=== PATIENT | male | born 1990 | race Caucasian/White ===

== ENCOUNTER 2016-08-24 12:04 | Inpatient (IN) | payer OTHER ==
[~2016-08-24] VITALS: Ht 180.3 cm; Wt 75.1 kg
[~2016-08-24 12:04] MED LIST: LACTATED RINGER'S 1000 ML INJ 1,000 ML IV ONE; ONDANSETRON HCL 4 MG/2 ML VIAL IV PUSH ONE; PROPOFOL 200 MG/20 ML AMP IV ONE
[2016-08-24 12:06] VITALS: BP 140/76; PULSE 91; RESP 12; TEMP 97.7; O2SAT 96
[2016-08-24] MEDS ORDERED: CEPH-460 PO (12:21)
[2016-08-24] MEDS ORDERED: NORC5TAB PO (12:21)
[2016-08-24] MEDS ORDERED: SODIUM CHLOR 0.9% 1000 ML INJ 1,000 ML IV SCH (12:45)
[2016-08-24] MEDS ORDERED: VANCOMYCIN INJ 1,000 MG in SODIUM CHLOR 0.9% 250 ML INJ 250 ML IV ONE (12:45)
--- NOTE | 2016-08-24 13:22 | PD ---
HPI Chief Complaint: Injury Time Seen by Provider: 12:20 Travel History International Travel<30 days: No Contact w/Intl Traveler<30days: No Traveled to known affect area: No History of Present Illness HPI 25-year-old male complains of right fifth finger pain. Patient had a crush injury from 2 pieces of metal 4 days ago. Patient went to the emergency room in [place] and had x-ray done of the right hand which show a compound comminuted fracture right fifth finger. The laceration was repaired with sutures. Patient was discharged home with prescription for Keflex. Patient was advised to follow with orthopedist. Patient was seen by Dr. Jerrell Yanes in the office this morning and referred to ED for evaluation. Patient is up-to-date with TD booster. PFSH Past Medical History Gastrointestinal Disorders: Yes (ulcerative colitis) Tetanus Vaccination: < 5 Years Influenza Vaccination: No Social History Alcohol Use: Yes (occ) Tobacco Use: Yes (dip/weekly) Substance Use: No Allergies-Medications (Allergen,Severity, Reaction): Coded Allergies: No Known Allergies (Unverified , 08/24/16) Reported Meds & Prescriptions Reported Meds & Active Scripts Active Reported Grimes (Hydrocodone-Acetaminophen) 5-325 mg Tab 1 Tab PO Q6H PRN Keflex (Cephalexin) 500 Mg Cap 500 Mg PO Q6H Review of Systems General / Constitutional: No: Fever Eyes: No: Visual changes HENT: No: Headaches Cardiovascular: No: Chest Pain or Discomfort Respiratory: No: Shortness of Breath Gastrointestinal: No: Abdominal Pain Genitourinary: No: Dysuria Musculoskeletal: No: Pain Skin: No Rash Neurologic: No: Weakness Psychiatric: No: Depression Endocrine: No: Polydipsia Hematologic/Lymphatic: No: Easy Bruising Physical Exam Narrative GENERAL: Well-nourished, well-developed patient. SKIN: Warm and dry. HEAD: Normocephalic. EYES: No scleral icterus. No injection or drainage. NECK: Supple, trachea midline. No JVD or lymphadenopathy. CARDIOVASCULAR: Regular rate and rhythm without murmurs, gallops, or rubs. RESPIRATORY: Breath sounds equal bilaterally. No accessory muscle use. GASTROINTESTINAL: Abdomen soft, non-tender, nondistended. MUSCULOSKELETAL: No cyanosis, or edema. BACK: Nontender without obvious deformity. No CVA tenderness. Patient has redness swelling tenderness right fifth finger with blackened discoloration distal phalanx of the right fifth finger. Data Data Last Documented VS Vital Signs Date Time Temp Pulse Resp B/P Pulse Ox O2 Delivery O2 Flow Rate FiO2 08/24/16 12:06 97.7 91 12 140/76 96 Room Air Orders Complete Blood Count With Diff (08/24/16 12:37) Basic Metabolic Panel (Bmp) (08/24/16 12:37) Blood Culture (08/24/16 12:37) Iv Access Insert/Monitor (08/24/16 12:37) Sodium Chlor 0.9% 1000 Ml Inj (Ns 1000 M (08/24/16 12:45) Vancomycin Inj (Vancomycin Inj) (08/24/16 12:45) Finger (Tni3nzc) (08/24/16 13:07) Piperacil-Tazo 3.375 Gm Premix (Zosyn 3. (08/24/16 13:30) Add Patient To Providers List (08/24/16 ) Labs Laboratory Tests Test 08/24/16 13:05 White Blood Count 11.6 TH/MM3 Red Blood Count 5.33 MIL/MM3 Hemoglobin 15.7 GM/DL Hematocrit 47.0 % Mean Corpuscular Volume 88.2 FL Mean Corpuscular Hemoglobin 29.4 PG Mean Corpuscular Hemoglobin 33.3 % Concent Red Cell Distribution Width 13.4 % Platelet Count 222 TH/MM3 Mean Platelet Volume 8.8 FL Neutrophils (%) (Auto) 79.7 % Lymphocytes (%) (Auto) 11.7 % Monocytes (%) (Auto) 6.5 % Eosinophils (%) (Auto) 1.4 % Basophils (%) (Auto) 0.7 % Neutrophils # (Auto) 9.3 TH/MM3 Lymphocytes # (Auto) 1.4 TH/MM3 Monocytes # (Auto) 0.8 TH/MM3 Eosinophils # (Auto) 0.2 TH/MM3 Basophils # (Auto) 0.1 TH/MM3 CBC Comment DIFF FINAL Differential Comment Sodium Level 138 MEQ/L Potassium Level 4.1 MEQ/L Chloride Level 102 MEQ/L Carbon Dioxide Level 33.1 MEQ/L Anion Gap 3 MEQ/L Blood Urea Nitrogen 10 MG/DL Creatinine 0.96 MG/DL Estimat Glomerular Filtration 97 ML/MIN Rate Random Glucose 102 MG/DL Calcium Level 9.1 MG/DL MDM Medical Decision Making Medical Screen Exam Complete: Yes Emergency Medical Condition: Yes Interpretation(s) 1354 PM. CBC WBC 11.6. 79 neutrophil. BMP within normal limit. Differential Diagnosis Differential diagnosis including cellulitis, gangrene, compound fracture right fifth finger. Narrative Course 25-year-old male with history of open fracture right fifth finger. Examination consistent with cellulitis and possible gangrene of right fifth finger. Vancomycin 1 g IV. Zosyn 3.375 g IV. Hand surgeon contacted was see the patient in the ED. Diagnosis Primary Impression: Gangrene of finger Additional Impression: Finger fracture, right Qualified Code: S62.609B - Finger fracture, right, open, initial encounter Admitting Information Admitting Physician Requests: Admit Everett Camacho MD Aug 24, 2016 13:22
[2016-08-24] MEDS ORDERED: PIPERACIL-TAZO 3.375 GM PREMIX 50 ML IV ONE (13:30)
[2016-08-24 13:33] LABS: AUTOMATED NEUTROPHIL # 9.3 TH/MM3 (1.8-7.7); BASOPHIL # 0.1 TH/MM3 (0-0.2); BASOPHIL % 0.7 % (0.0-2.0); EOSINOPHIL # 0.2 TH/MM3 (0-0.4); EOSINOPHIL % 1.4 % (0.0-4.0); HEMO FLAGS DIFF FINAL; LYMPH % 11.7 % (9.0-44.0); LYMPHOCYTE # 1.4 TH/MM3 (1.0-4.8); MEAN CELL VOLUME 88.2 FL (80.0-100.0); MEAN CORPUSCULAR HEMOGLOBIN 29.4 PG (27.0-34.0); MEAN CORPUSCULAR HGB CONC 33.3 % (32.0-36.0); MONO % 6.5 % (0.0-8.0); NEUT % 79.7 % (16.0-70.0); PLATELET COUNT 222 TH/MM3 (150-450); RED BLOOD COUNT 5.33 MIL/MM3 (4.50-5.90); RED CELL DISTRIBUTION WIDTH 13.4 % (11.6-17.2); WHITE BLOOD COUNT 11.6 TH/MM3 (4.0-11.0)
[2016-08-24 13:44] LABS: BICARBONATE 33.1 MEQ/L (21.0-32.0); POTASSIUM 4.1 MEQ/L (3.5-5.1)
--- NOTE | 2016-08-24 14:23 | RADRPT ---
EXAM DATE/TIME: 08/24/2016 13:40 [facility] COMPARISON: No previous studies available for comparison. INDICATIONS : Smashed finger , increased swelling and pain. MEDICAL HISTORY : None. SURGICAL HISTORY : None. ENCOUNTER: Initial ACUITY: 4 - 6 days PAIN SCORE: 10/10 LOCATION: Right 5th finger. FINDINGS: 3 views of the right little finger demonstrates a comminuted and angulated fracture of the fifth digi t at the middle phalange with approximately 45 of palmar angulation. There is moderate adjacent soft tissue edema is seen. No evidence of articular extension.. CONCLUSION: Comminuted mildly angulated fracture of the fifth digit middle phalange. No articular extension. Arely Dunn MD on August 24, 2016 at 13:57 Board Certified Radiologist. This report was verified electronically.
--- NOTE | 2016-08-24 14:29 | HHI.HP ---
[facility] [place] No Primary Care Physician Admission Diagnosis Diagnoses: Chief Complaint: Right hand infection, pain. Travel History International Travel<30 Days: No Contact w/Intl Traveler <30 Da: No Traveled to Known Affected Are: No History of Present Illness Mr. Alamo is a pleasant 25-year-old male with no significant past medical history who presents to the emergency department due to right fifth finger pain, black eschar formation. On 08/20/2016 at around 5 PM patient suffered a crush injury from 2 pieces of metal. He went to [place] emergency room and had imaging studies done that showed a compound comminuted fracture of the right fifth digit. His laceration was repaired with sutures. Patient was subsequently discharged home with Keflex and was advised to follow- up with orthopedic surgeon area patient went to see Dr. Jerrell Yanes on the day of admission, 08/24/2016 and subsequently was advised to come to the emergency department. Patient denies any chest pain, shortness of breath, fever or chills. Denies any changes in bowel or bladder habits. Review of Systems ROS Limitations: Other (negative except as noted in the history of present illness) Past Family Social History Past Medical History No significant medical history Past Surgical History Right knee surgery 12 years ago Reported Medications Does not take any medication on a regular basis. Patient was recently discharged from an outside ED on Keflex. Allergies: Coded Allergies: No Known Allergies (Unverified , 08/24/16) Family History Motherrheumatoid arthritis Social History No history of premature coronary artery disease Physical Exam Vital Signs Vital Signs Date Time Temp Pulse Resp B/P Pulse Ox O2 Delivery O2 Flow Rate FiO2 08/24/16 12:06 97.7 91 12 140/76 96 Room Air Physical Exam GENERAL: This is a well-nourished, well-developed patient, in no apparent distress. SKIN: No rashes, ecchymoses or lesions. Warm and dry. HEAD: Atraumatic. Normocephalic. No temporal or scalp tenderness. EYES: Pupils equal round and reactive. No injection or drainage. ENT: Nose without bleeding, purulent drainage or septal hematoma. Airway patent. NECK: Trachea midline. No lymphadenopathy. Supple, nontender, no meningeal signs. CARDIOVASCULAR: Regular rate and rhythm without murmurs, gallops, or rubs. No JVD. RESPIRATORY: Clear to auscultation. Breath sounds equal bilaterally. No wheezes , rales, or rhonchi. GASTROINTESTINAL: Abdomen soft, non-tender, nondistended. No guarding. MUSCULOSKELETAL: Extremities without clubbing, cyanosis, or edema. Right fifth digit has dressing on. Reviewed picture - top of the finger has gangrenous changes. Able to move all fingers. NEUROLOGICAL: Awake and alert. Cranial nerves II through XII intact. No focal neurological deficits. Normal speech. Laboratory Laboratory Tests Test 08/24/16 13:05 White Blood Count 11.6 Red Blood Count 5.33 Hemoglobin 15.7 Hematocrit 47.0 Mean Corpuscular Volume 88.2 Mean Corpuscular Hemoglobin 29.4 Mean Corpuscular Hemoglobin 33.3 Concent Red Cell Distribution Width 13.4 Platelet Count 222 Mean Platelet Volume 8.8 Neutrophils (%) (Auto) 79.7 Lymphocytes (%) (Auto) 11.7 Monocytes (%) (Auto) 6.5 Eosinophils (%) (Auto) 1.4 Basophils (%) (Auto) 0.7 Neutrophils # (Auto) 9.3 Lymphocytes # (Auto) 1.4 Monocytes # (Auto) 0.8 Eosinophils # (Auto) 0.2 Basophils # (Auto) 0.1 CBC Comment DIFF FINAL Differential Comment Sodium Level 138 Potassium Level 4.1 Chloride Level 102 Carbon Dioxide Level 33.1 Anion Gap 3 Blood Urea Nitrogen 10 Creatinine 0.96 Estimat Glomerular Filtration 97 Rate Random Glucose 102 Calcium Level 9.1 Date/Time Procedure Status Source Growth 08/24/16 13:05 Aerobic Blood Culture Received Blood Peripheral Pending 08/24/16 13:05 Anaerobic Blood Culture Received Blood Peripheral Pending Result Diagram: 08/24/16 1305 08/24/16 1305 Imaging Last Impressions Finger X-Ray 08/24/16 1307 Signed Impressions: Service Date/Time: Wednesday, August 24, 2016 13:40 - CONCLUSION: Comminuted mildly angulated fracture of the fifth digit middle phalange. No articular extension. Arely Dunn MD Assessment and Plan Problem List: (1) Gangrene of finger ICD Code: I96 Status: Acute (2) Finger fracture, right ICD Code: S62.609A Status: Acute Assessment and Plan Mr. Alamo is a pleasant 25-year-old male with no significant past medical history who presents to the emergency department 4 days after he had a crush injury from 2 pieces of metal and sustained right fifth finger fracture. Patient was initially treated at an outside ED and was discharged on Keflex. During a follow-up with orthopedic surgeon today 08/24/2016, patient was advised to come to the emergency department. - Right sided 5th digit fracture - Gangrene of the right 5th digit - Acetaminophen, Percocet, morphine when necessary for pain. - Hand surgery consult pending - Continue Vancomycin and Zosyn for now. Full code. SCDs, Ambulation. Physician Certification 2 Midnight Certification Type: Admission for Inpatient Services Order for Inpatient Services The services are ordered in accordance with Medicare regulations or non- Medicare payer requirements, as applicable. In the case of services not specified as inpatient-only, they are appropriately provided as inpatient services in accordance with the 2-midnight benchmark. Estimated LOS (days): 2 days is the estimated time the patient will need to remain in the hospital, assuming treatment plan goals are met and no additional complications. Post-Hospital Plan: Home Problem Qualifiers (1) Finger fracture, right: Qualified Code: S62.609B - Finger fracture, right, open, initial encounter Reginald Meléndez DO Aug 24, 2016 2:29 pm
[2016-08-24] MEDS ORDERED: BISACODYL 10 MG SUPP PR PRN (14:30)
[2016-08-24] MEDS ORDERED: SODIUM CHLORIDE 0.9% FLUSH 5 ML FLUSH FLUSH PRN (14:30)
[2016-08-24] MEDS ORDERED: Vancomycin Consult Pharmacy 1 EA OTHER SCH (14:30)
[2016-08-24] MEDS ORDERED: ONDANSETRON HCL 4 MG/2 ML VIAL IVP PRN (14:30)
[2016-08-24] MEDS ORDERED: ACETAMINOPHEN 325 MG TAB PO PRN (14:30)
[2016-08-24] MEDS ORDERED: MAGNESIUM HYDROXIDE SUSP 30 ML CUP PO PRN (14:30)
[2016-08-24] MEDS ORDERED: NALOXONE HCL 0.4 MG/ML AMP IV PRN (14:30)
[2016-08-24] MEDS: LACTATED RINGER'S 1000 ML INJ 1,000 ML IV SCH ×2 (14:45→21:46)
[2016-08-24] MEDS ORDERED: BUPIVACAINE HCL PF 0.5% 30 ML VIAL ONE (16:28)
[2016-08-24] MEDS ORDERED: LIDOCAINE HCL 2% 50 ML VIAL ONE (16:28)
[2016-08-24] MEDS ORDERED: BACITRACIN TOP OINT 15 GM TUBE ONE ×2 (16:29→16:32)
[2016-08-24] MEDS ORDERED: BACITRACIN OPHT OINT 3.5 GM TUBO ONE (16:30)
[2016-08-24] MEDS ORDERED: ACETAMINOPHEN 1000 MG/100 ML VIAL IV ONE (16:38)
[2016-08-24] MEDS ORDERED: MIDAZOLAM HCL 2 MG/2 ML VIAL ONE (16:38)
[2016-08-24] MEDS ORDERED: HYDROmorphone HCL PF 2 MG/ML VIAL ONE (16:38)
[2016-08-24] MEDS ORDERED: fentaNYL CITRATE 250 MCG/5 ML AMP ONE (16:56)
[2016-08-24] MEDS ORDERED: LIDOCAINE HCL 2% 50 ML VIAL INFIL ONE (17:05)
[2016-08-24] MEDS ORDERED: BUPIVACAINE HCL PF 0.5% 30 ML VIAL INFIL ONE (17:05)
[2016-08-24] MEDS ORDERED: NEOMYCIN/POLYMYXIN 1 ML G.U. IRRIGANT IR ONE (17:29)
[2016-08-24] MEDS ORDERED: DO NOT ADM ANY ANTICOAGULANT DRUGS XX PRN (17:54)
[2016-08-24] MEDS: SODIUM CHLORIDE 0.9% FLUSH 5 ML FLUSH FLUSH SCH (21:00)
[2016-08-24 21:27] VITALS: BP 139/71; PULSE 78; RESP 16; TEMP 97.3; O2SAT 97
[2016-08-24] MEDS: PIPERACIL-TAZO 3.375 GM PREMIX 50 ML IV SCH (21:45)
[2016-08-25] VITALS (8 sets, daily range): BP systolic 116–140; BP diastolic 59–78; PULSE 72–94; RESP 16; TEMP 97.4–98.1; O2SAT 97–98
[2016-08-25] MEDS: oxyCODONE/ACETAMINOPHEN 5 MG/325 MG TAB PO PRN ×3 (00:08→19:18)
[2016-08-25] MEDS: VANCOMYCIN INJ 1,250 MG in SODIUM CHLOR 0.9% 250 ML INJ 250 ML IV SCH ×2 (00:08→13:43)
--- NOTE | 2016-08-25 00:11 | MB ---
cc: ANTONIO ANTUNEZ III, M.D. 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 He went to the emergency room at [place], had x-rays done which showed an open fracture of the right fifth finger. I think he was placed on Keflex. He said he soaked his hand in Betadine and the laceration was repaired with sutures. He was advised to follow up with an orthopedic surgeon which he did so this morning and was sent to me to the emergency room. PAST MEDICAL HISTORY: Ulcerative colitis Tetanus vaccination, he is up-to-date with his tetanus booster. SOCIAL HISTORY Drinks occasional alcohol and does not smoke. ALLERGIES NO KNOWN DRUG ALLERGIES. MEDICATIONS 1. Roy. 2. Keflex. FAMILY HISTORY: Noncontributory to this injury. REVIEW OF SYSTEMS He is not complaining of any fevers, headaches, blurry or double vision. He is not complaining of any chest pain or palpitations. He does not complain of any coughing, wheezing or shortness breath. He is not complaining of any nausea, vomiting or abdominal pain. He does not complain of any burning, frequency or urgency. He is not complaining of any musculoskeletal pain aside from the right fifth finger, he is not complaining of any rashes, lesions or eruptions on the skin. He is not complaining of numbness or weakness. He is not complaining of any anxiety, depression or suicidal ideation. He is not complaining of any easy bruising. X-RAYS: Reveal comminuted mildly angulated fracture of the fifth middle phalanx without any articular extension. LABORATORY STUDIES: Reveal a white blood cell count 11.6 thousand, H&H 15.7, 47.0, platelet count 222, BUN and creatinine 10 and 0.96. PHYSICAL EXAMINATION: The patient is well-developed, well-nourished, in no apparent distress. Awake, alert, oriented x3, very pleasant, sitting in his bed. His parents in the room. VITAL SIGNS: Temperature 98.0, blood pressure 127/65. Pulse ox 97% on room air. Examination of the right fifth finger reveals obvious normal right fifth finger the distal one-half of which is almost cadaveric in appearance with dry mummified gangrene of the very tip of the finger and through the nail bed. There is a sutured closed wound volarly. He is able to slightly flex and extend the finger at the PIP joint. There does appear to be a wet gangrenous component proximal to the nail bed and distal to the level of the skin injury. There is no evidence of any proximal streaking. There is no erythema otherwise. There is no streaking lymphangitis. There is no subcutaneous emphysema. IMPRESSION Crush injury right fifth finger with open fracture of the middle phalanx and wet and dry gangrene. PLAN: The plan is to go to the operating room urgently/emergently. The patient understands he is going to have a shortened fifth finger to the extent of which I cannot be sure. I will try to repair the bone if that is going to be possible but I will try to give him the best overall result. He and his parents understand and agree and wish to proceed. They know there is a 50/50 chance of the need for touch up procedures in the future. They request that we proceed. I also recommend he stay in the hospital as he has a moderate chance of developing osteomyelitis. I recommend at least a 24 to 48 hour course of IV antibiotics which he did not get initially and evaluation by Infectious Disease for their recommendations. They understand and agree to proceed, and request this. MD ISAIAH Hernandez III/LYNDSAY /6:41 PM /12:00 AM
[2016-08-25] MEDS: SODIUM CHLOR 0.9% 1000 ML INJ 1,000 ML IV SCH ×4 (00:30→21:08)
[2016-08-25] MEDS: LACTATED RINGER'S 1000 ML INJ 1,000 ML IV SCH ×3 (02:42→22:45)
[2016-08-25] MEDS: PIPERACIL-TAZO 3.375 GM PREMIX 50 ML IV SCH ×4 (03:05→21:08)
[2016-08-25 07:19] LABS: AUTOMATED NEUTROPHIL # 11.1 TH/MM3 (1.8-7.7); BASOPHIL % 0.2 % (0.0-2.0); EOSINOPHIL % 0.1 % (0.0-4.0); HEMATOCRIT 44.4 % (39.0-51.0); HEMO FLAGS DIFF FINAL; LYMPH % 10.3 % (9.0-44.0); LYMPHOCYTE # 1.4 TH/MM3 (1.0-4.8); MEAN CELL VOLUME 86.8 FL (80.0-100.0); MEAN CORPUSCULAR HEMOGLOBIN 29.5 PG (27.0-34.0); MONO % 4.9 % (0.0-8.0); NEUT % 84.5 % (16.0-70.0); PLATELET COUNT 241 TH/MM3 (150-450); RED BLOOD COUNT 5.11 MIL/MM3 (4.50-5.90); RED CELL DISTRIBUTION WIDTH 13.3 % (11.6-17.2); WHITE BLOOD COUNT 13.2 TH/MM3 (4.0-11.0)
[2016-08-25 07:37] LABS: BICARBONATE 26.3 MEQ/L (21.0-32.0)
[2016-08-25] MEDS: SODIUM CHLORIDE 0.9% FLUSH 5 ML FLUSH FLUSH SCH ×2 (09:00→20:41)
[2016-08-25] MEDS ORDERED: INFLUENZA VIRUS VACCINE (QUADRIVALENT) 0.5 ML SYR IM ONE (09:00)
--- NOTE | 2016-08-25 09:59 | MP ---
cc: ALISTAIR ROWELL M.D. DATE OF OPERATION 08/24/2016 PREOPERATIVE DIAGNOSIS Right fifth finger crush injury with open fracture middle phalanx. PROCEDURE 1. Right fifth finger partial amputation. 2. Right fifth finger debridement of skin, subcutaneous tissue, tendon and bone associated with open fracture. 3. He Full-thickness skin graft of the right fifth finger. SURGEON Sridhar Lane III, PROCEDURE The patient was brought to the operating room and placed supine on the operating room table. After the correct site and side of the surgery were verified by members of each team in the room multiple times including the patient and myself and after adequate preoperative markings and preoperative written consent were verified by everyone and after adequate preoperative time-out was performed to everyone's satisfaction, and after adequate general anesthesia had been achieved, the right upper extremity was prepped and draped in the traditional sterile surgical fashion. A 50/50 mixture of 2% plain lidocaine and 0.5% plain Marcaine was infiltrated in the skin and subcutaneous tissue at the level of the metacarpal. The other fingers were protected. The obviously ischemic areas of the fifth finger were then examined and small incisions were made first distally, then progressing proximally to assess the level of viability. On the volar aspect of the fifth finger all of the volar skin was devitalized and there was no bleeding until the area of the laceration was located. The sutures were removed first and exploration was done and there was no bleeding distally but there was proximally. Dorsally on the finger the viable skin extended another centimeter or so. This was taken advantage of. Devitalized tissue left the distal fracture fragment completely exposed so I decided to amputate the remaining ischemic necrotic gangrenous finger at that level of the mid-middle phalanx. The jagged edges of the remaining bone were then rongeured down to a much smoother contour. The FTP tendon was secured to the extensor remnant to provide for a little more functional use of the finger and the PIP joint and this was done with a locking 3-0 Prolene suture. 3-0 Vicryl suture was then used to close the A4 jeannine over the tip of the FDP and then skin from the amputated half of the finger was then harvested in the area where there was no superficial epidermolysis nor obvious destruction in a full-thickness fashion. This was sutured in place after all the adipose tissue underneath the skin was excised sharply. It was tailored to shape, size and contour and then secured in place using interrupted and running 4-0 chromic sutures. The hand and arm were then thoroughly cleansed and dried. Xeroform was applied over the skin graft and then the hand and arm were thoroughly cleansed and dried. A bulky soft, protective sterile dressing was applied around the fifth finger protecting it. The patient was awakened from anesthesia and transported to the Post-Anesthesia Care Unit awake and in stable condition at the end of the case. There was no evidence of any hematoma formation or any active bleeding even though all tissues at this point were viable. Sponge, needle and instrument counts were correct at the in end of the case as reported by the nurses in the room. MD ISAIAH Hernandez III/SHRUTHI /6:49 PM /9:50 AM
--- NOTE | 2016-08-25 13:23 | PD.CONS ---
History of Present Illness Service Infectious disease Consult Requested By Dr Jenise Lane Reason for Consult Eval patient with open fracture on the left fifth finger, status post partial amputation Primary Care Physician No Primary Care Physician Diagnoses: History of Present Illness Patient seen and examined. Records reviewed. Patient is a 25-year-old male, with no significant past medical history, works in construction, sustained a crush injury on his right fifth finger when it got caught between concrete and possibly a steel I-beam. He went to a nearby emergency room, and he was found to have an open fracture of the right fifth finger. The lacerations was repaired, and he was put on oral Keflex. Patient was advised to go to the orthopedic surgeon who saw him on the day of this admission, who then refer the patient to go to the hand surgeon and to the emergency room. There has been no fever chills or sweats. Patient received tetanus shot in the emergency room 4 days ago. Patient was taken to surgery yesterday and had partial amputation of his right fifth finger. Infectious disease consultation has been requested to evaluate the patient. Review of Systems Constitutional: DENIES: Fever, Chills Eyes: DENIES: Eye pain Ears, nose, mouth, throat: DENIES: Nasal discharge, Oral lesions, Throat pain, Ear Pain, Sinus Pain, Toothache Respiratory: DENIES: Cough Cardiovascular: DENIES: Chest pain, Palpitations Gastrointestinal: DENIES: Abdominal pain, Diarrhea, Nausea, Vomiting Genitourinary: DENIES: Hematuria, Dysuria Integumentary: DENIES: Rash Immunologic/allergic: DENIES: Urticaria Neurologic: DENIES: Headache Psychiatric: DENIES: Anxiety, Confusion Past Family Social History Allergies: Coded Allergies: No Known Allergies (Unverified , 08/24/16) Past Medical History Ulcerative colitis as a child , has not had any follow-up now that he is an adult, and he has felt so exacerbation of his colitis Past Surgical History Left knee surgery Active Ordered Medications Percocet Zosyn Vancomycin MOM Morphine Zofran Tylenol Dulcolax Social History No smoking Occasional alcohol use Denies illicit drug use Physical Exam Vital Signs Vital Signs Date Time Temp Pulse Resp B/P Pulse Ox O2 Delivery O2 Flow Rate FiO2 08/25/16 12:00 97.5 94 16 140/78 98 08/25/16 10:30 98 21 08/25/16 08:27 97.4 84 16 116/60 98 08/25/16 04:00 97.6 80 16 128/63 98 08/25/16 01:32 19 08/25/16 00:00 97.7 73 16 126/59 98 08/24/16 21:27 97.3 78 16 139/71 97 08/24/16 21:02 98.0 73 17 137/74 97 Room Air 08/24/16 21:00 73 17 137/74 97 Room Air 08/24/16 20:00 68 17 131/76 97 Room Air 08/24/16 19:45 63 17 126/68 97 Room Air 08/24/16 19:30 77 18 128/71 96 Room Air 08/24/16 19:15 69 18 131/65 96 Room Air 08/24/16 19:00 62 18 123/65 97 Room Air 08/24/16 18:45 69 18 128/60 97 Room Air 08/24/16 18:30 68 18 127/66 97 Room Air 08/24/16 18:15 69 18 127/65 97 Room Air 08/24/16 18:00 64 18 112/60 98 Room Air 08/24/16 17:55 98.0 68 18 112/60 98 Nasal Cannula 2 Physical Exam GENERAL: This is a well-nourished, well-developed young male, awake and alert, in no apparent distress. SKIN: Warm and dry, no generalized rash. HEAD: Atraumatic. Normocephalic. No temporal or scalp tenderness. EYES: [place] conjunctiva. Pupils equal round and reactive. Extraocular motions intact. No scleral icterus. No injection or drainage. ENT: Nose without bleeding, or purulent drainage. Moist oral mucosa. Throat without erythema, or exudate. Uvula midline. Airway patent. NECK: Trachea midline. No JVD or lymphadenopathy. Supple, nontender, no meningeal signs. CARDIOVASCULAR: Regular rate and rhythm without murmurs, gallops, or rubs. RESPIRATORY: Clear to auscultation. Breath sounds equal bilaterally. No wheezes , rales, or rhonchi. GASTROINTESTINAL: Abdomen soft, non-tender, nondistended. No hepato-splenomegaly , or palpable masses. No guarding. MUSCULOSKELETAL: Extremities without clubbing, cyanosis, or edema. No joint effusion, or edema noted. No calf tenderness. Intact dry dressing to his R hand , no lymphangitis seen in his R forearm and upper arm NEUROLOGICAL: Awake and alert. Cranial nerves II through XII intact. Motor and sensory grossly within normal limits. Five out of 5 muscle strength in all muscle groups. Normal speech. PSYCH: Normal affect, calm and cooperative. LINE: PIV with no evidence of infection Laboratory Laboratory Tests Test 08/25/16 05:46 White Blood Count 13.2 Red Blood Count 5.11 Hemoglobin 15.1 Hematocrit 44.4 Mean Corpuscular Volume 86.8 Mean Corpuscular Hemoglobin 29.5 Mean Corpuscular Hemoglobin 34.0 Concent Red Cell Distribution Width 13.3 Platelet Count 241 Mean Platelet Volume 8.8 Neutrophils (%) (Auto) 84.5 Lymphocytes (%) (Auto) 10.3 Monocytes (%) (Auto) 4.9 Eosinophils (%) (Auto) 0.1 Basophils (%) (Auto) 0.2 Neutrophils # (Auto) 11.1 Lymphocytes # (Auto) 1.4 Monocytes # (Auto) 0.6 Eosinophils # (Auto) 0.0 Basophils # (Auto) 0.0 CBC Comment DIFF FINAL Differential Comment Sodium Level 138 Potassium Level 4.0 Chloride Level 103 Carbon Dioxide Level 26.3 Anion Gap 9 Blood Urea Nitrogen 10 Creatinine 0.92 Estimat Glomerular Filtration 102 Rate Random Glucose 129 Calcium Level 8.5 Date/Time Procedure Status Source Growth 08/24/16 13:05 Aerobic Blood Culture - Preliminary Resulted Blood Peripheral NO GROWTH IN 1 DAY 08/24/16 13:05 Anaerobic Blood Culture - Preliminary Resulted Blood Peripheral NO GROWTH IN 1 DAY Result Diagram: 08/25/16 0546 08/25/16 0546 Imaging RADIOLOGY STUDIES/FILMS REVIEWED Finger X-Ray 08/24/16 1307 Signed Impressions: Service Date/Time: Wednesday, August 24, 2016 13:40 - CONCLUSION: Comminuted mildly angulated fracture of the fifth digit middle phalange. No articular extension. Arely Dunn MD Assessment and Plan Assessment and Plan IMPRESSION Open fracture R 5th finger from crush injury, has developed gangrene of distal finger - S/P partial amputation on his R 5th finger Hx Ulcerative colitis RECOMMENDATION Continue Zosyn and Vancomycin for now Will D/W hand surgery Possibly Cipro and Doxycyline or Cipro and Clindamycin when he gets D/C No C/S from OR Monitor progress I will follow along with you Thank you for this consultation Discussed Condition With Explained plan to patient and his parents Kait To MD Aug 25, 2016 13:23
[2016-08-25] MEDS: MORPHINE SULFATE 4 MG/ML INJ IV PUSH PRN ×2 (13:43→21:16)
--- NOTE | 2016-08-25 19:39 | HHI.PR ---
Subjective Remarks Follow up for right 5th digit injury and subsequent gangrenous transformation. Mr. Alamo underwent surgical partial amputation of digit 5. Patient is currently doing well. No acute concerns. No CP, SOB, fever. Objective Vitals Vital Signs Date Time Temp Pulse Resp B/P Pulse Ox O2 Delivery O2 Flow Rate FiO2 08/25/16 16:00 98.1 76 16 120/60 97 08/25/16 12:00 97.5 94 16 140/78 98 08/25/16 10:30 98 21 08/25/16 08:27 97.4 84 16 116/60 98 08/25/16 04:00 97.6 80 16 128/63 98 08/25/16 01:32 19 08/25/16 00:00 97.7 73 16 126/59 98 08/24/16 21:27 97.3 78 16 139/71 97 08/24/16 21:02 98.0 73 17 137/74 97 Room Air 08/24/16 21:00 73 17 137/74 97 Room Air 08/24/16 20:00 68 17 131/76 97 Room Air 08/24/16 19:45 63 17 126/68 97 Room Air I/O 08/24/16 08/24/16 08/24/16 08/25/16 08/25/16 08/25/16 07:00 15:00 23:00 07:00 15:00 23:00 Intake Total 1480 ml 587 ml 720 ml Output Total 615 ml 250 ml Balance 865 ml 337 ml 720 ml Intake Oral 480 ml 720 ml IV Total 587 ml Other 1000 ml Output Urine Total 600 ml 250 ml Estimated Blood Loss 15 ml # Voids 5 # Bowel Movements 2 Result Diagram: 08/25/16 0546 08/25/16 0546 Imaging Last Impressions Finger X-Ray 08/24/16 1307 Signed Impressions: Service Date/Time: Wednesday, August 24, 2016 13:40 - CONCLUSION: Comminuted mildly angulated fracture of the fifth digit middle phalange. No articular extension. Arely Dunn MD Objective Remarks GENERAL: AOX3, NAD. SKIN: Warm and dry. HEAD: Normocephalic. EYES: No scleral icterus. No injection or drainage. NECK: Supple, trachea midline. No JVD or lymphadenopathy. CARDIOVASCULAR: Regular rate and rhythm without murmurs, gallops, or rubs. RESPIRATORY: Breath sounds equal bilaterally. No accessory muscle use. GASTROINTESTINAL: Abdomen soft, non-tender, nondistended. MUSCULOSKELETAL: No cyanosis, or edema. Right hand - digit 5 dressing on. S/p partial amputation. BACK: Nontender without obvious deformity. No CVA tenderness. Procedures 08/24/2016 PROCEDURE 1. Right fifth finger partial amputation. 2. Right fifth finger debridement of skin, subcutaneous tissue, tendon and bone associated with open fracture. 3. He Full-thickness skin graft of the right fifth finger. A/P Problem List: (1) Gangrene of finger ICD Code: I96 Status: Acute (2) Finger fracture, right ICD Code: S62.609A Status: Acute Assessment and Plan Mr. Alamo is a pleasant 25-year-old male with no significant past medical history who presents to the emergency department 4 days after he had a crush injury from 2 pieces of metal and sustained right fifth finger fracture. Patient was initially treated at an outside ED and was discharged on Keflex. During a follow-up with orthopedic surgeon today 08/24/2016, patient was advised to come to the emergency department. - Right sided 5th digit fracture - Gangrene of the right 5th digit - Acetaminophen, Percocet, morphine when necessary for pain. - Hand surgery following. S/p partial amputation of right hand digit 5, I&D, skin graft. - Continue Vancomycin and Zosyn for now. ID following. Full code. SCDs, Ambulation. Problem Qualifiers (1) Finger fracture, right: Qualified Code: S62.609B - Finger fracture, right, open, initial encounter Reginald Meléndez DO Aug 25, 2016 19:39
[2016-08-26] VITALS: BP 114/58; PULSE 52; RESP 16; TEMP 97.5; O2SAT 96
[2016-08-26] MEDS ORDERED: PHARMACY ORDERED LAB XX ONE (00:45)
[2016-08-26] MEDS: VANCOMYCIN INJ 1,250 MG in SODIUM CHLOR 0.9% 250 ML INJ 250 ML IV SCH (01:56)
[2016-08-26] MEDS: PIPERACIL-TAZO 3.375 GM PREMIX 50 ML IV SCH ×2 (04:09→10:17)
[2016-08-26] MEDS: oxyCODONE/ACETAMINOPHEN 5 MG/325 MG TAB PO PRN ×2 (04:22→10:16)
[2016-08-26 04:35] VITALS: BP 125/74; PULSE 58; RESP 16; TEMP 97.8; O2SAT 98
[2016-08-26] MEDS: LACTATED RINGER'S 1000 ML INJ 1,000 ML IV SCH (06:45)
[2016-08-26 08:00] VITALS: BP 137/79; PULSE 72; RESP 16; TEMP 97.6; O2SAT 96
[2016-08-26 10:00] VITALS: O2SAT 98
[2016-08-26] MEDS: SODIUM CHLORIDE 0.9% FLUSH 5 ML FLUSH FLUSH SCH (10:17)
[2016-08-26] MEDS ORDERED: NORC5TAB PO (11:25)
[2016-08-26] MEDS ORDERED: DOXY100C PO (11:46)
[2016-08-26] MEDS ORDERED: CIPR-9 PO (11:46)
--- NOTE | 2016-08-26 12:52 | HHI.PR ---
Subjective Remarks Follow up for right hand digit 5 injury, infection. Mr. Alamo is doing well post surgery. Hand surgery cleared for discharge. Denies any chest pain, SOB, fever, chills. Family members at bedside. Objective Vitals Vital Signs Date Time Temp Pulse Resp B/P Pulse Ox O2 Delivery O2 Flow Rate FiO2 08/26/16 10:00 98 21 08/26/16 08:00 97.6 72 16 137/79 96 08/26/16 05:22 18 08/26/16 04:35 97.8 58 16 125/74 98 08/26/16 00:00 97.5 52 16 114/58 96 08/25/16 23:25 98 08/25/16 21:21 18 08/25/16 20:00 97.4 72 16 123/70 98 08/25/16 16:00 98.1 76 16 120/60 97 I/O 08/25/16 08/25/16 08/25/16 08/26/16 08/26/16 08/26/16 07:00 15:00 23:00 07:00 15:00 23:00 Intake Total 587 ml 720 ml 500 ml 1601 ml Output Total 250 ml 300 ml Balance 337 ml 720 ml 500 ml 1301 ml Intake Oral 720 ml 500 ml 200 ml IV Total 587 ml 1401 ml Output Urine Total 250 ml 300 ml # Voids 5 1 1 # Bowel Movements 2 0 0 Result Diagram: 08/25/16 0546 08/25/16 0546 Imaging Last Impressions Finger X-Ray 08/24/16 1307 Signed Impressions: Service Date/Time: Wednesday, August 24, 2016 13:40 - CONCLUSION: Comminuted mildly angulated fracture of the fifth digit middle phalange. No articular extension. Arely Dunn MD Objective Remarks GENERAL: AOX3, NAD. SKIN: Warm and dry. HEAD: Normocephalic. EYES: No scleral icterus. No injection or drainage. NECK: Supple, trachea midline. No JVD or lymphadenopathy. CARDIOVASCULAR: Regular rate and rhythm without murmurs, gallops, or rubs. RESPIRATORY: Breath sounds equal bilaterally. No accessory muscle use. GASTROINTESTINAL: Abdomen soft, non-tender, nondistended. MUSCULOSKELETAL: No cyanosis, or edema. Right hand - digit 5 dressing on. S/p partial amputation. BACK: Nontender without obvious deformity. No CVA tenderness. Procedures 08/24/2016 PROCEDURE 1. Right fifth finger partial amputation. 2. Right fifth finger debridement of skin, subcutaneous tissue, tendon and bone associated with open fracture. 3. He Full-thickness skin graft of the right fifth finger. A/P Problem List: (1) Gangrene of finger ICD Code: I96 Status: Acute (2) Finger fracture, right ICD Code: S62.609A Status: Acute Assessment and Plan Mr. Alamo is a pleasant 25-year-old male with no significant past medical history who presents to the emergency department 4 days after he had a crush injury from 2 pieces of metal and sustained right fifth finger fracture. Patient was initially treated at an outside ED and was discharged on Keflex. During a follow-up with orthopedic surgeon today 08/24/2016, patient was advised to come to the emergency department. - Right sided 5th digit fracture - Gangrene of the right 5th digit - Acetaminophen, Percocet, morphine when necessary for pain. - Hand surgery following. S/p partial amputation of right hand digit 5, I&D, skin graft. - Continue Vancomycin and Zosyn for now. ID following. Cipro and doxy on discharge. Full code. SCDs, Ambulation. Discharge patient to home Condition on discharge: Improved Regular Diet as tolerated [place] activity Rx written: - Cipro and Doxycycline for 2 weeks. - Pain meds. Follow-up with primary care physician within one week and Hand surgery next week. Problem Qualifiers (1) Finger fracture, right: Qualified Code: S62.609B - Finger fracture, right, open, initial encounter Reginald Meléndez DO Aug 26, 2016 12:52
[2016-08-26 13:00] VITALS: BP 113/74; PULSE 71; RESP 16; TEMP 97.7; O2SAT 99
[2016-08-26] MEDS ORDERED: VANCOMYCIN INJ 1,250 MG in SODIUM CHLOR 0.9% 250 ML INJ 250 ML IV SCH (13:00)
[2016-08-27] MEDS ORDERED: PHARMACY ORDERED LAB XX ONE (20:45)
== END 2016-08-26 13:51 | disposition home or self-care (01) | DRG 513 ==
LOC: NEPE 12:04 → NEDA 14:36 → HOCA 21:07
PROVIDERS: ADMIT Hospitalist; ATTEND Hospitalist
PROC: 0X6V0Z2 Detachment at Right Little Finger, Mid, Open Approach (ICD-10-PCS; principal; 2016-08-24 16:45)
PROC: 0HRFX73 Replacement of Right Hand Skin with Autologous Tissue Substitute, Full Thickness, External Approach (ICD-10-PCS; 2016-08-24 16:45)
DX: S62.626B Displaced fracture of middle phalanx of right little finger, initial encounter for open fracture (principal); I96 Gangrene, not elsewhere classified; S67.196A Crushing injury of right little finger, initial encounter; W23.0XXA Caught, crushed, jammed, or pinched between moving objects, initial encounter; Y93.H3 Activity, building and construction; Z72.0 Tobacco use; Z23 Encounter for immunization
CPT/HCPCS: 73140; 76000; 80048; 80202; 85025; 87040; 88305; 88311; 90686; 96365; 96375; J0131; J1170; J2250; J2270; J2405; J2543; J3010; J3370; J7030; J7050; J7120; Q2038